=== PATIENT | female | born 1945 | race Caucasian/White ===

== ENCOUNTER → 2016-09-28 | Outpatient (CLI) | payer BC ==
[~2016-09-28] MED LIST: ALL180 PO; CALC-51; FLONASE; MULT-506 PO
--- NOTE | 2016-09-28 15:00 | MAMMOGRAPHY REPORT ---
BILATERAL DIGITAL SCREENING MAMMOGRAM WITH CAD: 09/28/2016 CLINICAL HISTORY: Routine screening. Patient has no complaints. TECHNIQUE: Bilateral CC and MLO views were obtained. Current study was also evaluated with a Comput er Aided Detection (CAD) system. COMPARISON: Comparison is made to exams dated: 09/26/2015 mammogram, 09/21/2013 mammogram, 09/25/2014 mammogram, 08/11/2012 mammogram, 07/28/2011 mammogram, and 08/01/2010 mammogram - [facility]. BREAST COMPOSITION: There are scattered areas of fibroglandular density in both breasts. FINDINGS: The parenchymal pattern is similar to prior exams. There are benign appearing calcificati ons anteriorly in the left breast. No suspicious mass, architectural distortion or cluster of micro calcifications is seen. IMPRESSION: ACR BI-RADS CATEGORY 1: NEGATIVE There is no mammographic evidence of malignancy. A 1 year screening mammogram is recommended. The p atient will receive written notification of the results. Approximately 10% of breast cancers are not detected with mammography. A negative mammographic repor t should not delay biopsy if a clinically suggestive mass is present. Charo Crow M.D. ay/:09/28/2016 13:47:18 Rehab Manager: Huong VENTURA(Natalia)(Cristal), [facility] letter sent: Normal 1/2 BI-RADS Code: ACR BI-RADS Category 1: Negative
== END | disposition home or self-care (01) ==
LOC: C.MAMM 08:40
PROVIDERS: ATTEND Nurse Practitioner
DX: Z12.31 Encounter for screening mammogram for malignant neoplasm of breast (principal)

== ENCOUNTER → 2017-07-23 | Day surgery (SDC) | payer BC ==
[2017-07-14 07:54] VITALS: BMI 22.0
[~2017-07-23] VITALS: Ht 160 cm; Wt 57.7 kg
[~2017-07-23] MED LIST changes: -ALL180 PO; +ASPCH81X PO; +ATROPINE SULFATE 0.1 MG/ML 5ML SYR IV PRN; -CALC-51; +CHOL200010 PO; +EpHEDrine SULFATE INJ 50 MG/ML AMP IV PRN; +FEXO1TAB49 PO; +FLAX1CAP11 PO; -FLONASE; +OMEG10007 PO; +OYST500T47 PO
[2017-07-23 10:30] VITALS: Ht 160 cm; Wt 57.7 kg
--- NOTE | 2017-07-23 10:58 | Endo History and Physical ---
History & Physical Date of Service: Jul 23, 2017. Chief Complaint: HX OF POLYPS Referring Physician: ALBERT CHRIS History of Present Illness 72 yo CF who presents for colonoscopy secondary to history of colon polyps. Past Surgical History Hx Cardiac Surgery: No Hx Internal Defibrillator: No Hx Pacemaker: No Hx Abdominal Surgery: Yes (TUBAL LIGATION) Hx of Implantable Prosthesis: No Hx Post-Op Nausea and Vomiting: Yes Hx Cancer Surgery: No Hx Thoracic Surgery: No Hx Orthopedic: Yes (RT RCR, LUMBAR FUSION) Hx Urinary Tract Surgery: No Family History Colon CA, Polyp, IBD Social History Smoking Status: Never Smoker Hx Substance Use: No Hx Alcohol Use: Yes (VERY RARELY) Allergies Coded Allergies: Latex1 -Allergic Contact Dermititis (Verified Allergy, Intermediate, LIP SWELL, 07/23/17) ONLY OCCURS WHEN AT DENTIST AND LATEX TOUCH LIPS NO KNOWN DRUG ALLERGIES (Verified Allergy, Unknown, ., 07/23/17) Current Medications Reported Home Medications Medications Dose Route/Sig Max Daily Dose Days Date Category Multivitamin (Multivitamins) Tab 1 Tab PO QAM 07/14/17 Reported Aspirin Chewable (Aspirin) 81 Mg Chew 81 Mg PO QAM 07/14/17 Reported Calcium (Oyster Shell) 500 Mg Tab 1 Tab PO QAM 07/14/17 Reported Vitamin D (Cholecalciferol) 2,000 Unit Cap 2 Cap PO BID 07/14/17 Reported Flax Seed Oil (Flaxseed (Linseed)) 1 Cap Cap 1 Cap PO BID 07/14/17 Reported [place]-3 (Fish Oil) 1 Ea Cap 1 Cap PO BID 07/14/17 Reported Desi Allergy (Fexofenadine Hcl) 180 Mg Tab 1 Tab PO QAM 07/14/17 Reported Vital Signs Weight (Kilograms): 57.73 Height (Feet): 5 Height (Inches): 3 Date Time Temp Pulse Resp B/P (MAP) Pulse Ox O2 Delivery O2 Flow Rate FiO2 07/23/17 10:37 36.7 72 16 142/68 (92) 99 Room Air Physical Exam General Appearance: WD/WN, no apparent distress Respiratory/Chest: Auscultation: breath sounds normal Cardiovascular: Heart Auscultation: RRR Abdomen: Bowel Sounds: normal Inspection & Palpation: soft, non-distended, no tenderness, guarding & rebound Assessment and Plan Assessment: 72 yo CF who presents for colonoscopy secondary to history of colon polyps. Plan: Proceed with colonoscopy.
--- NOTE | 2017-07-23 11:40 | Discharge Instructions ---
Endoscopy Patient Instructions Date / Procedure(s) Performed Jul 23, 2017. Colonoscopy Allergy Information Coded Allergies: Latex1 -Allergic Contact Dermititis (Verified Allergy, Intermediate, LIP SWELL, 07/23/17) ONLY OCCURS WHEN AT DENTIST AND LATEX TOUCH LIPS NO KNOWN DRUG ALLERGIES (Verified Allergy, Unknown, ., 07/23/17) Discharge Date / Findings Jul 23, 2017. Diverticulosis Internal hemorrhoids Medication Instructions OK to resume all medications today as prescribed Reported Home Medications Medications Dose Route/Sig Max Daily Dose Days Date Category Multivitamin (Multivitamins) Tab 1 Tab PO QAM 07/14/17 Reported Aspirin Chewable (Aspirin) 81 Mg Chew 81 Mg PO QAM 07/14/17 Reported Calcium (Oyster Shell) 500 Mg Tab 1 Tab PO QAM 07/14/17 Reported Vitamin D (Cholecalciferol) 2,000 Unit Cap 2 Cap PO BID 07/14/17 Reported Flax Seed Oil (Flaxseed (Linseed)) 1 Cap Cap 1 Cap PO BID 07/14/17 Reported [place]-3 (Fish Oil) 1 Ea Cap 1 Cap PO BID 07/14/17 Reported Desi Allergy (Fexofenadine Hcl) 180 Mg Tab 1 Tab PO QAM 07/14/17 Reported Provider Instructions Activity Restrictions - No exercising or heavy lifting for 24 hours. - Do not drink alcohol the day of the procedure. - Do not drive a car or operate machinery until the day after the procedure. - Do not make any important decisions or sign important papers in 24 hours after the procedure. Following Day: - Return to full activity which may include returning to work/school. Diet Start your diet with liquids and light foods (jello, soup, juice, toast). Then eat your usual diet if not nauseated. Treatment For Common After Affects For mild abdominal pain, bloating, or excessive gas: - Rest - Eat lightly - Lie on right side Follow-Up Information Follow-up with ALBERT CHRIS as scheduled Anesthesia Information What You Should Know You have had a procedure that required some medicine to reduce anxiety and discomfort. This treatment is called moderate sedation. After receiving the treatment, you may be sleepy, but you will be able to breathe on your own. The effects of the treatment may last for several hours. Follow these instructions along with Activity/Diet recommendations noted above: * Do NOT do anything where dizziness or clumsiness would be dangerous. * Rest quietly at home today, then you can be up and about tomorrow. * Have a responsible person stay with you the rest of today. * You may have had an I.V. today. If so, you may take the dressing off later today. Recommendations Call your doctor if: * Trouble breathing * Continuous vomiting for more than 24 hours * Temperature above 101 degrees * Severe abdominal pain or bloating * Pain not relieved by pain medicine ordered * There is increased drainage or redness from any incision * A large amount of rectal bleeding greater than 2-3 tablespoons. (If you had a polyp/s removed or have hemorrhoids, a small amount of blood - from the rectum is to be expected.) * You have any unanswered questions or concerns. IN THE EVENT OF A SERIOUS EMERGENCY, GO TO THE NEAREST EMERGENCY ROOM Your discharge instructions were prepared by provider Matt Qureshi. Patient Instructions Signature Page Kaylin Marvin Patient (or Guardian) Signature/Date: I have read and understand the instructions given to me by my caregivers. Caregiver/RN/Doctor Signature/Date: The above-named patient and/or guardian has received patient instructions on this date. + Original Patient Signature Page (only) stays with chart. Please make copy for patient.
[2017-07-23 11:55] VITALS: BP 137/90; PULSE 63; O2SAT 100
--- NOTE | 2017-07-23 11:56 | Anesthesiology Progress Note ---
Anesthesia Post Op Note Date & Time Jul 23, 2017 at 11:56 Vital Signs Pain Intensity: 0 Vital Signs Past 12 Hours Date Time Temp Pulse Resp B/P (MAP) Pulse Ox O2 Delivery O2 Flow Rate FiO2 07/23/17 11:40 73 16 128/67 (87) 100 Room Air 07/23/17 11:40 73 16 128/67 (87) 100 Room Air 07/23/17 10:37 36.7 72 16 142/68 (92) 99 Room Air Notes Mental Status: alert / awake / arousable, participated in evaluation Pt Amnestic to Procedure: Yes Nausea / Vomiting: adequately controlled Pain: adequately controlled Airway Patency, RR, SpO2: stable & adequate BP & HR: stable & adequate Hydration State: stable & adequate Anesthetic Complications: no major complications apparent
--- NOTE | 2017-07-23 14:00 | GI REPORT ---
Procedure Date: 07/23/2017 10:54 AM Procedure: Colonoscopy Indications: High risk colon cancer surveillance: Personal history of colonic polyps Medicines: Monitored Anesthesia Care Complications: No immediate complications. Estimated Blood Loss: Estimated blood loss: none. Procedure: Pre-Anesthesia Assessment: - Prior to the procedure, a History and Physical was performed, and patient medications and allergies were reviewed. The patient's tolerance of previous anesthesia was also reviewed. The risks and benefits of the procedure and the sedation options and risks were discussed with the patient. All questions were answered, and informed consent was obtained. Prior Anticoagulants: The patient has taken aspirin, last dose was 2 days prior to procedure. ASA Grade Assessment: II - A patient with mild systemic disease. After reviewing the risks and benefits, the patient was deemed in satisfactory condition to undergo the procedure. After I obtained informed consent, the scope was passed under direct vision. Throughout the procedure, the patient's blood pressure, pulse, and oxygen saturations were monitored continuously. The On-site loaner was introduced through the anus and advanced to the terminal ileum. The colonoscopy was performed without difficulty. The patient tolerated the procedure well. The quality of the bowel preparation was good. The terminal ileum, ileocecal valve, appendiceal orifice, and rectum were photographed. Findings: The perianal and digital rectal examinations were normal. Multiple small-mouthed diverticula were found in the sigmoid colon. Non-bleeding internal hemorrhoids were found during retroflexion. The hemorrhoids were small. Impression: - Diverticulosis in the sigmoid colon. - Non-bleeding internal hemorrhoids. - No specimens collected. Recommendation: - Resume previous diet. - Continue present medications. - Repeat colonoscopy in 5 years for surveillance. - Return to primary care physician as previously scheduled. Matt Qureshi DO 07/23/2017 11:38:53 AM This report has been signed electronically. Note Initiated On: 07/23/2017 10:54 AM I attest to the content of the Intraoperative Record and orders documented therein, exceptions below
== END | disposition home or self-care (01) ==
LOC: C.GI 10:06
PROVIDERS: ATTEND Internal Medicine
DX: Z12.11 Encounter for screening for malignant neoplasm of colon (principal); K57.30 Diverticulosis of large intestine without perforation or abscess without bleeding; K64.8 Other hemorrhoids; Z86.010 Personal history of colon polyps; Z98.51 Tubal ligation status; Z98.890 Other specified postprocedural states; Z80.0 Family history of malignant neoplasm of digestive organs; Z01.419 Encounter for gynecological examination (general) (routine) without abnormal findings; Z91.040 Latex allergy status; Z79.82 Long term (current) use of aspirin

== ENCOUNTER → 2017-09-29 | Outpatient (CLI) | payer BC ==
[~2017-09-29] MED LIST changes: -ATROPINE SULFATE 0.1 MG/ML 5ML SYR IV PRN; -EpHEDrine SULFATE INJ 50 MG/ML AMP IV PRN
--- NOTE | 2017-09-29 15:40 | MAMMOGRAPHY REPORT ---
BILATERAL DIGITAL SCREENING MAMMOGRAM TOMOSYNTHESIS WITH CAD: 09/29/2017 CLINICAL HISTORY: Routine screening. TECHNIQUE: Breast tomosynthesis in addition to standard 2D mammography was performed. Current study was also evaluated with a Computer Aided Detection (CAD) system. COMPARISON: Comparison is made to exams dated: 09/28/2016 mammogram, 09/26/2015 mammogram, 09/25/2014 m ammogram, 09/21/2013 mammogram, 08/11/2012 mammogram, and 07/28/2011 mammogram - [facility]. BREAST COMPOSITION: There are scattered areas of fibroglandular density in both breasts. FINDINGS: No suspicious masses, calcifications, or areas of architectural distortion are noted in ei ther breast. There has been no significant interval change compared to prior exams. IMPRESSION: ACR BI-RADS CATEGORY 1: NEGATIVE There is no mammographic evidence of malignancy. A 1 year screening mammogram is recommended. The pa tient will receive written notification of the results. Approximately 10% of breast cancers are not detected with mammography. A negative mammographic report should not delay biopsy if a clinically suggestive mass is present. Anjali Hyman M.D. /:09/29/2017 09:43:56 Roll Coating Machine Operator: Nav VENTURA(R)(M), [facility] letter sent: Normal 1/2 BI-RADS Code: ACR BI-RADS Category 1: Negative
== END | disposition home or self-care (01) ==
LOC: C.MAMM 09:20
PROVIDERS: ATTEND Nurse Practitioner
DX: Z12.31 Encounter for screening mammogram for malignant neoplasm of breast (principal)

== ENCOUNTER 2019-05-24 06:00 | Inpatient (IN) ==
--- NOTE | 2019-05-02 16:07 | PAT Medication Instructions ---
Medication Instructions Date of Service May 02, 2019 Home Medications aspirin [Aspir-81] 81 mg PO QPM calcium carbonate [Calcium 600] 600 mg PO QAM cholecalciferol (vitamin D3) [Vitamin D3] 2,000 unit PO QAM fexofenadine [Desi Allergy] 180 mg PO QAM flaxseed oil 1,500 mg PO BID ibuprofen 600 mg PO Q6H PRN multivitamin 1 tab PO QAM omega 2-htu-qfz-fish oil [Fish Oil] 1 cap PO BID ASK your surgeon for instructions ibuprofen 600 mg PO Q6H PRN ASK your prescriber and surgeon aspirin [Aspir-81] 81 mg PO QPM STOP taking 2 weeks before surgery (or as soon as possible if surgery is within 2 weeks) flaxseed oil 1,500 mg PO BID omega 2-wth-rda-fish oil [Fish Oil] 1 cap PO BID DO NOT take the morning of surgery calcium carbonate [Calcium 600] 600 mg PO QAM cholecalciferol (vitamin D3) [Vitamin D3] 2,000 unit PO QAM fexofenadine [Desi Allergy] 180 mg PO QAM multivitamin 1 tab PO QAM Other Notes If you have any questions please call us at [phone] or [phone] or [phone] or [phone]
--- NOTE | 2019-05-03 10:02 | Anesthesiology Consultation ---
Date of Service May 03, 2019 Assessment & Plan (1) Encounter for pre-operative examination: Possible difficult intubation due to anatomy. Chart Review Chart Review: Acceptable Risk for Surgery (pending review of preop testing (labs, EKG, CXR)) and Patient seen in Pre Admission Testing Teaching & Discussion Pre-Anesthesia Teaching/Discussion Notes: Instructed NPO after midnight before surgery,except medications with 15 cc of water. Medication instructions provided according to the PAT guidelines. History Surgery Operation Date: 05/24/19 07:45 Proposed Procedures p L2-L5 Decompression and Fusion, Spinal Cord Monitoring - Douglas Almanza DO Height/Weight Height: 5 ft 3 in Weight: 59.8 kg Allergies Allergy/AdvReac Type Severity Reaction Status Date / Time latex Allergy Intermediate LIP Verified 04/25/19 09:44 SWELLING-DENTAL WORK Medications Home Medications Medication Instructions Recorded Confirmed Last Taken aspirin [Aspir-81] 81 mg PO QPM 04/25/19 04/25/19 Unknown calcium carbonate [Calcium 600] 600 mg PO QAM 04/25/19 04/25/19 Unknown cholecalciferol (vitamin D3) 2,000 unit PO QAM 04/25/19 04/25/19 Unknown [Vitamin D3] fexofenadine [Desi Allergy] 180 mg PO QAM 04/25/19 04/25/19 Unknown flaxseed oil 1,500 mg PO BID 04/25/19 04/25/19 Unknown ibuprofen 600 mg PO Q6H PRN 04/25/19 04/25/19 Unknown multivitamin 1 tab PO QAM 04/25/19 04/25/19 Unknown omega 1-iyj-yjd-fish oil [Fish Oil] 1 cap PO BID 04/25/19 04/25/19 Unknown Past Medical History Medical History Arthritis Migraine HX Stomach ulcer HX Exercise / Class Metabolic Activity II 4-5 Yardwork/Stairs/Walk up hill Past Family History Family History Mother Family hx of colon cancer Past Surgical History Surgical History Fusion of spine LUMBAR History of bilateral tubal ligation History of colonoscopy History of esophagogastroduodenoscopy (EGD) History of repair of rotator cuff RIGHT Past Anesthesia History No Hx of Anesthesia Complications (except PONV) and No Family Hx of Anesthesia Complications History of PONV History of PONV and Hx of Motion Sickness Social History Smoking Status: Never smoker Do You Dip or Chew Tobacco: No Hx Alcohol Use: Yes Alcohol type: beer alcohol intake frequency: holidays/special occasions only Hx Substance Use: No Review of Systems Patient denies chest pain, shortness of breath, dyspnea on exertion, reflux, cough, wheezing, palpitations. Physical Exam Vital Signs VITALS BP 132/71 P 65 TEMP 97.8 SP02 100%RA RESP 20 PHYSICAL Full neck and c-spine range of motion. Full TMJ range of motion. TMD 2 finger breaths (small chin) Mallampati Score 2 Dentition: missing molars, several crowns, upper front veneers Lungs: clear throughout to auscultation Cardiac: regular rate and rhythm, no murmurs noted Spine: normal Carotid arteries: negative bruit Extremities: no edema
--- NOTE | 2019-05-03 10:39 | XRay Report ---
XR chest Pre-admission PA/Lat CLINICAL HISTORY: 74 years-old Female presenting with preoperative evaluation. TECHNIQUE: PA and lateral views of the chest were obtained. COMPARISON: 02/15/2007. FINDINGS: Atherosclerosis of the aortic arch. Cardiac silhouette normal in size. Lungs are hyperinflated. No fo sarah opacity. No pleural effusion or pneumothorax. Degenerative changes of the thoracic spine. Upper a bdomen normal. IMPRESSION: 1. Findings suggest emphysema. No focal infiltrate to suggest pneumonia. Electronically signed by: Antonio Wyatt M.D. 05/03/2019 10:38 AM
[2019-05-03 10:49] LABS: Appearance Urine Clear (Clear); Basophils # (auto) 0.01 K/uL (0-0.2); Basophils % (auto) 0.2 %; Bilirubin Urine Negative (Negative); Blood Urine Negative (Negative); Color Urine Yellow; Eosinophils # (auto) 0.12 K/uL (0-0.5); Eosinophils % (auto) 1.9 %; Glucose Urine UA Negative (Negative); Hematocrit (blood only) 42.6 % (37-47); Hemoglobin 14.8 g/dL (12.0-16.0); Immature Granulocytes # (auto) 0.02 K/uL (0.00-0.02); Immature Granulocytes % (auto) 0.3 %; Ketones Urine Negative (Negative); Leukocyte Esterase Urine Negative (Negative); Lymphocytes # (auto) 1.79 K/uL (1.2-3.4); Lymphocytes % (auto) 28.3 %; Mean Corpuscular Hgb Conc 34.7 g/dL (32-36); Monocytes # (auto) 0.45 K/uL (0.11-0.59); Monocytes % (auto) 7.1 %; Neutrophils # (auto) 3.94 K/uL (1.4-6.5); Neutrophils % (auto) 62.2 %; Nitrite Urine Negative (Negative); Platelet Count 253 K/uL (130-400); Protein Urine Negative (Negative); RDW Coefficient of Variation 13.4 % (11.5-14.5); RDW Standard Deviation 44.8 fL (36.4-46.3); Red Blood Count 4.63 M/uL (4.2-5.4); Specific Gravity Urine 1.015 (1.000-1.030); Urobilinogen Urine Negative (Negative); White Blood Count 6.33 K/uL (4.8-10.8)
[2019-05-03 10:56] LABS: Calcium 9.9 mg/dl (8.5-10.1); Creatinine Clr Calc Pharmacy 44.1 ml/min; Est GFR (African American) 69.8; Est GFR (Non-African American) 60.2; Potassium 4.3 mmol/L (3.5-5.1)
[2019-05-03 11:01] LABS: Partial Thromboplastin Ratio 0.9; Partial Thromboplastin Time 25.6 Seconds (21.0-31.0); Prothrombin Time 10.1 Seconds (9.0-12.0)
[~2019-05-24 06:00] MED LIST changes: +ACETAMINOPHEN 500 MG TAB PO SCH; -ASPCH81X PO; +CEFAZOLIN 1000MG 1,000 MG/7.5 ML SYR IV SCH; -CHOL200010 PO; +CeleBREX 200 MG CAP PO SCH; -FEXO1TAB49 PO; -FLAX1CAP11 PO; +GABAPENTIN 300 MG CAP PO SCH; +LR 15ML/HR IV SCH; -MULT-506 PO; -OMEG10007 PO; -OYST500T47 PO
[2019-05-24] MEDS ORDERED: MIDAZOLAM HCL 1 MG/ML 2ML VIAL ONE (06:49)
[2019-05-24] MEDS ORDERED: HYDROmorphone INJ 2 MG/ML SYR/VIAL ONE (06:50)
[2019-05-24] MEDS ORDERED: fentaNYL citrate 100 MCG/2 ML VIAL ONE ×4 (06:50→10:03)
[2019-05-24] MEDS ORDERED: LIDOCAINE HCL 2% 2 ML VIAL/AMP(20MG/ML) INFIL ONE (06:51)
[2019-05-24] MEDS ORDERED: GLYCOPYRROLATE 0.2 MG/ML VIAL ONE (06:51)
[2019-05-24] MEDS ORDERED: NEOSTIGMINE METHYLSULFATE 1 MG/ML 10ML VIAL ONE (06:51)
[2019-05-24] MEDS ORDERED: PROPOFOL IV EMULSION 10 MG/ML 20 ML VIAL IV ONE (06:51)
[2019-05-24] MEDS ORDERED: DEXAMETHASONE SOD INJ 4 MG/ML VIAL ONE (06:51)
[2019-05-24] MEDS ORDERED: ONDANSETRON INJ 2 MG/ML 2 ML VIAL ONE (06:51)
[2019-05-24] MEDS ORDERED: ROCURONIUM BROMIDE 10 MG/ML 5 ML VIAL ONE (06:51)
[2019-05-24] MEDS ORDERED: BUPIVACAINE/EPINEPHRINE 0.5% MPF 1:200,000 30 ML VIAL ONE (07:05)
[2019-05-24] MEDS ORDERED: BACITRACIN INJ 50,000 UNIT VIAL ONE (07:06)
--- NOTE | 2019-05-24 07:22 | History & Physical Bridge Note ---
Date of Service May 24, 2019 History & Physical Bridge Note I have examined the patient, reviewed the History & Physical and in the interval since the performance of the History & Physical I have noted the following changes of clinical significance: no changes noted
--- NOTE | 2019-05-24 07:23 | History & Physical Report ---
Date of Service May 24, 2019 Assessment & Plan (1) Neurogenic claudication due to lumbar spinal stenosis: L2-L5 decompression and fusion Present on Admission?: Yes History of Present Illness Chief Complaint: Back and bilateral leg pain Primary Care Provider: ARIES Neri This is a 74-year-old female who presents with chronic persistent back and bilateral leg pain. After failing extensive course of nonoperative care is here for surgical intervention. Allergies Allergy/AdvReac Type Severity Reaction Status Date / Time latex Allergy Intermediate LIP Verified 05/24/19 06:21 SWELLING-DENTAL WORK No Known Drug Allergies Allergy Unknown Uncoded 05/24/19 06:21 Home Medications Home Medications Medication Instructions Recorded Confirmed Type aspirin [Aspir-81] 81 mg PO QPM 04/25/19 05/24/19 History calcium carbonate [Calcium 600] 600 mg PO QAM 04/25/19 05/24/19 History fexofenadine [Desi Allergy] 180 mg PO QAM 04/25/19 05/24/19 History flaxseed oil 1,500 mg PO BID 04/25/19 05/04/19 History ibuprofen 600 mg PO Q6H PRN 04/25/19 05/24/19 History omega 3-dxa-edk-fish oil [Fish Oil] 1 cap PO BID 04/25/19 05/04/19 History Past Med/Surg History Medical History Arthritis Migraine HX Stomach ulcer HX Surgical History Fusion of spine LUMBAR History of bilateral tubal ligation History of colonoscopy History of esophagogastroduodenoscopy (EGD) History of repair of rotator cuff RIGHT Family History Mother Family hx of colon cancer Social History Preferred Language: Nepali Communication Ability: Effective Construction Equipment Technician Required: No Beliefs That Will Affect Care: None Current Living Situation: Spouse Other Information That Helps Us Care for You: No Feels Safe at Home: Yes Safety Concerns: Feels Safe At This Time Smoking Status: Never smoker Do You Dip or Chew Tobacco: No ; Second Hand Exposure: No ; Hx Alcohol Use: Yes Alcohol type: beer Hx Substance Use: No Physical Exam Physical Exam: Patient is alert and oriented neurologically intact. Results & Data Vital Signs (Past 12 Hours) Vital Signs Temp Pulse Resp BP Pulse Ox 05/24/19 06:27 36.9 C 79 16 158/72 H 99
[2019-05-24] MEDS ORDERED: ATROPINE SULFATE 0.1 MG/ML 10ML SYR IV PRN (07:30)
[2019-05-24] MEDS ORDERED: HYDROmorphone INJ 1 MG/ML SYRINGE IV PRN (07:30)
[2019-05-24] MEDS ORDERED: ePHEDrine sulfate 50 MG/ML AMP IV PRN (07:30)
[2019-05-24] MEDS ORDERED: FLOSEAL HEMOSTATIC MATRIX 10ML TOP ONE (08:29)
[2019-05-24] MEDS ORDERED: ePHEDrine sulfate 50 MG/ML SYR ONE (09:31)
[2019-05-24] MEDS ORDERED: PHENYLEPHRINE 100MCG/ML 5ML SYR ONE (09:31)
[2019-05-24] MEDS ORDERED: ePHEDrine sulfate 50 MG/ML AMP ONE (09:31)
[2019-05-24] MEDS ORDERED: KETOROLAC 30 MG/ML VIAL ONE ×2 (09:31→11:56)
[2019-05-24] MEDS ORDERED: raNITIdine HCl 25 MG/ML VIAL IV ONE (09:31)
--- NOTE | 2019-05-24 10:01 | Operative Report ---
Post Operative Report Pre & Post Diagnosis Operation Date: 05/24/19 07:45 Pre-Op Diagnosis: Spinal stenosis with neurogenic claudication. Herniated nucleus pulposus L2-3 with foraminal disc herniation Post-Op Diagnosis: Same Procedure Operation Date: 05/24/19 07:45 Actual Procedures #1 removal of posterior instrumentation L5-S1. #2 expiration of fusion L5-S1. #3 lumbar decompression with bilateral medial facetectomies and foraminotomies L2-3 L3-4 L4-5. #4 posterior spinal fusion L2-3 L3-4 L4-5. #5 placement posterior segmental instrumentation L2-S1. #6 interbody fusion L2-3. #7 placement of peek cage 9 x 26 mm of L2-3. #8 basement of local autograft in the posterior lateral gutters per #9 placement infuse collagen sponge combined master graft in the posterior lateral gutters and ostial amp in the interbody space. Surgeon Douglas Almanza, Retail General Manager Sana Braxton Estimated Blood Loss 225 Findings Consistent with Post-Op Diagnosis Specimens None Indications This is a 74-year-old female well-known to the presents with above-mentioned diagnosis after failing extensive course of nonoperative care elected to go the above-mentioned procedure. Description of Procedure Patient was met with identified and informed consent obtained. Patient was then taken to the operative suite underwent intubation placed in the prone position the Malvin table on top of the Julian frame. All bony prominences well-padded eyes inspected to ensure no external pressure placed upon the peer at this point the lumbar spine was prepped and draped in the normal sterile fashion. Sharp dissection with the assistance of Bovie cautery was performed down to and exposing the lamina and transverse processes of L2-L3-L4 and instrumentation at L5 and S1 levels bilaterally. Then proceed remove the hardware bilaterally at L5 and S1. Explore the fusion mass noting it to be intact. Then performed a complete laminectomy with bilateral medial facetectomies and foraminotomies from a caudal cephalad fashion of L for L3 and L2. Pedicle fusion and placed in L2 L3-L4-L5 and S1 levels bilaterally with assistance of fluoroscopy the purposes mini provisionally placed by way of a trans-foraminal approach on the right complete discectomy of L2-3 was performed including removal of all disc herniation occupying the foramen. The endplates were then burred to subcortical bleeding bone and a 9 x 26 mm peek cage filled with osteo-amp bone graft tapped in position. The rods were then locked in final position bilaterally. The transverse processes of L2-L3-L4 L5 were then burred to subcortical bleeding bone. Infuse collagen sponge master graft and local autograft placed in the posterior lateral gutters. 15 round KASH drain inserted. The incision was then closed with 1 Vicryl in the fascia 2-0 Vicryl subcutaneous and 4-0 Monocryl for final skin closure. Steri-Strip sterile dressing was placed. Patient will continue PACU stable disc. Please note Sana Braxton present throughout the entire procedure involved in patient positioning complex portions of the surgery and final skin closure. Lastly spinal cord monitoring was utilized throughout the procedure no changes noted. I attest to the content of the Intraoperative Record and any orders documented therein. Any exceptions are noted below.
[2019-05-24] MEDS ORDERED: ESMOLOL HCL INJ 10 MG/ML 10ML VIAL IV ONE (10:02)
--- NOTE | 2019-05-24 10:17 | Fluoroscopy Report ---
FL lumbar spine 2-3V CLINICAL HISTORY: L2-L5 DECOMPRESSION AND FUSION COMPARISON STUDY: None FLUOROSCOPY TIME: 22 seconds. NUMBER OF FLUOROSCOPIC IMAGES: 3 FINDINGS: 3 intraoperative fluoroscopic spot images demonstrate postsurgical changes of L2-3, and L5- S1 discectomies and interbody fusions. There is posterior spinal fusion at the L2-S1 levels with post erior pedicle screw fixation. Laminectomy defects are visualized IMPRESSION: Intraoperative radiographs demonstrating evidence of L2-L5 spinal decompression and fusi on. Electronically signed by: Danyel Miramontes M.D. 05/24/2019 10:16 AM
--- NOTE | 2019-05-24 11:00 | Anesthesiology Progress Note ---
Date of Service May 24, 2019 Anesthesia Post Procedure Vital Signs Vital Signs: Temp Pulse Pulse Resp BP BP Pulse Ox 05/24/19 10:55 72 18 151/67 H 100 05/24/19 10:45 98 H 18 138/66 98 05/24/19 10:35 93 H 18 155/75 H 100 05/24/19 10:25 80 24 148/70 H 100 05/24/19 10:19 36 C L 80 12 133/64 100 05/24/19 06:27 36.9 C 79 16 158/72 H 99 Transfer of Care Handoff Completed per policy Notes Mental Status: alert / awake / arousable Patient Amnestic to Procedure: Yes Nausea / Vomiting: adequately controlled Pain: adequately controlled Airway Patency, RR, SpO2: stable & adequate BP & HR: stable & adequate Hydration State: stable & adequate Anesthetic Complications: no major complications apparent and Pt Satisfied with anesthetic care
[2019-05-24] MEDS ORDERED: OXYCODONE HCL IR 5 MG TAB (IMMEDIATE RELEASE) PO PRN (11:51)
[2019-05-24] MEDS ORDERED: ALUMINUM/MAGNESIUM SUSP 30 ML UDC PO PRN (11:51)
[2019-05-24] MEDS ORDERED: METOCLOPRAMIDE HCL INJ 5 MG/ML 2 ML VIAL IV PRN (11:51)
[2019-05-24] MEDS ORDERED: LORazepam 0.5 MG/1 ML VIAL IV PRN (11:51)
[2019-05-24] MEDS ORDERED: FAMOTIDINE 20 MG TAB PO PRN (11:51)
[2019-05-24] MEDS ORDERED: HYDROmorphone INJ 0.5 MG/0.5 ML SYR IV PRN (11:51)
[2019-05-24] MEDS ORDERED: SOD PHOSPHATE/SOD BIPHOSPHATE ENEMA 132 ML BTL PR PRN (11:51)
[2019-05-24] MEDS ORDERED: MAGNESIUM HYDROXIDE SUSP 30 ML UDC PO PRN (11:51)
[2019-05-24] MEDS ORDERED: PROMETHAZINE HCL 12.5 MG in SODIUM CHLORIDE 0.9% 50 ML IV PRN (11:51)
[2019-05-24] MEDS ORDERED: NALOXONE HCL 0.4 MG/1 ML VIAL/CARP IV PRN (11:51)
[2019-05-24] MEDS ORDERED: DO NOT ADMINISTER PNEUMOCOCCAL VACCINE PRN (11:51)
[2019-05-24] MEDS ORDERED: LORazepam 0.5 MG TAB PO PRN (11:51)
[2019-05-24] MEDS ORDERED: BISACODYL 10 MG SUPP PR PRN (11:51)
[2019-05-24] MEDS ORDERED: ONDANSETRON INJ 2 MG/ML 2 ML VIAL IV PRN (11:51)
[2019-05-24] MEDS ORDERED: DO NOT ADMINISTER FLU VACCINE PRN (11:51)
[2019-05-24] MEDS ORDERED: LARYING-O-JET KIT (LTA) ONE (11:56)
[2019-05-24] MEDS: CEFAZOLIN 1000MG 1,000 MG/7.5 ML SYR IV SCH ×2 (17:01→23:38)
[2019-05-24] MEDS: ACETAMINOPHEN 1,000 MG/100 ML VIAL IV PRN (18:26)
[2019-05-24] MEDS: DOCUSATE SODIUM/SENNA 50/8.6MG TAB PO SCH (19:49)
[2019-05-24] MEDS: LACTATED RINGER'S 1,000 ML IV SCH ×2 (19:49→19:52)
[2019-05-24] MEDS: ASPIRIN 81 MG ECTAB PO SCH (19:49)
[2019-05-25] MEDS: POLYETHYLENE (MIRALAX) 17 GM PACK PO SCH ×4 (06:19→23:17)
[2019-05-25 06:20] LABS: Basophils # (auto) 0.01 K/uL (0-0.2); Basophils % (auto) 0.1 %; Eosinophils # (auto) 0.01 K/uL (0-0.5); Eosinophils % (auto) 0.1 %; Hematocrit (blood only) 30.6 % (37-47); Hemoglobin 10.4 g/dL (12.0-16.0); Immature Granulocytes # (auto) 0.03 K/uL (0.00-0.02); Immature Granulocytes % (auto) 0.3 %; Lymphocytes # (auto) 1.17 K/uL (1.2-3.4); Lymphocytes % (auto) 10.5 %; Mean Corpuscular Hemoglobin 31.5 pg (25-34); Mean Corpuscular Volume 92.7 fL (80-100); Mean Platelet Volume 10.7 fL (7.4-10.4); Monocytes # (auto) 1.04 K/uL (0.11-0.59); Monocytes % (auto) 9.4 %; Neutrophils # (auto) 8.86 K/uL (1.4-6.5); Neutrophils % (auto) 79.6 %; Platelet Count 206 K/uL (130-400); RDW Coefficient of Variation 13.6 % (11.5-14.5); RDW Standard Deviation 46.4 fL (36.4-46.3); White Blood Count 11.12 K/uL (4.8-10.8)
[2019-05-25 06:57] LABS: BUN Creatinine Ratio 15.1 (10-20); Calcium 8.5 mg/dl (8.5-10.1); Creatinine Clr Calc Pharmacy 53.8 ml/min; Est GFR (African American) 88.8; Est GFR (Non-African American) 76.6; Potassium 4.3 mmol/L (3.5-5.1)
[2019-05-25] MEDS: ACETAMINOPHEN 1,000 MG/100 ML VIAL IV PRN (07:24)
[2019-05-25] MEDS: ONDANSETRON 4 MG TAB PO PRN (08:51)
[2019-05-25] MEDS: FEXOFENADINE HCL 180 MG TAB PO SCH (08:52)
[2019-05-25] MEDS: TRAMADOL HCL 50 MG TABLET PO PRN ×2 (08:52→14:50)
[2019-05-25] MEDS: CALCIUM CARBONATE 500 MG CHEWABLE TAB PO SCH (08:52)
--- NOTE | 2019-05-25 09:17 | Orthopedic Progress Note ---
Date of Service May 25, 2019 Assessment & Plan (1) Neurogenic claudication due to lumbar spinal stenosis: This time initiate physical therapy monitor her KASH output and hopefully discharge home this weekend. Present on Admission?: Yes Subjective Back pain controlled leg symptoms improved. Physical Exam Physical Exam: Patient is in the chair at the bedside. Is good strength testing. Appears comfortable. Results & Data Vital Signs (Past 12 Hours) Vital Signs Temp Pulse Resp BP Pulse Ox 05/25/19 06:48 36.7 C 71 18 122/61 99 05/25/19 06:17 99 05/25/19 03:08 36.7 C 78 16 113/62 100 05/24/19 23:37 36.6 C 76 16 99/54 L 100
--- NOTE | 2019-05-25 09:38 | Anesthesiology Progress Note ---
Date of Service May 25, 2019 Anesthesia Post Procedure Vital Signs Vital Signs: Temp Pulse Pulse Resp BP Pulse Ox 05/25/19 06:48 36.7 C 71 18 122/61 99 05/25/19 06:17 99 05/25/19 03:08 36.7 C 78 16 113/62 100 05/24/19 23:37 36.6 C 76 16 99/54 L 100 05/24/19 19:44 36.3 C L 70 16 108/63 100 05/24/19 15:21 36.3 C L 66 16 96/56 L 100 05/24/19 14:48 83 12 107/56 L 100 05/24/19 14:16 36.2 C L 79 18 119/57 L 100 05/24/19 13:21 61 18 101/53 L 100 05/24/19 12:54 63 14 150/70 H 100 05/24/19 12:21 36.2 C L 64 16 133/68 100 05/24/19 11:55 87 18 126/71 100 05/24/19 11:15 61 14 155/65 H 05/24/19 11:05 36.2 C L 69 16 144/62 H 100 05/24/19 10:55 72 18 151/67 H 100 05/24/19 10:45 98 H 18 138/66 98 05/24/19 10:35 93 H 18 155/75 H 100 05/24/19 10:25 80 24 148/70 H 100 05/24/19 10:19 36 C L 80 12 133/64 100 Notes Mental Status: alert / awake / arousable and participated in evaluation Nausea / Vomiting: adequately controlled Pain: adequately controlled Airway Patency, RR, SpO2: stable & adequate BP & HR: stable & adequate Hydration State: stable & adequate
[2019-05-25] MEDS: ACETAMINOPHEN 500 MG TAB PO PRN (17:55)
[2019-05-25] MEDS: DOCUSATE SODIUM/SENNA 50/8.6MG TAB PO SCH (19:52)
[2019-05-25] MEDS: ASPIRIN 81 MG ECTAB PO SCH (19:52)
[2019-05-26] MEDS: POLYETHYLENE (MIRALAX) 17 GM PACK PO SCH ×3 (05:26→17:44)
[2019-05-26] MEDS: FEXOFENADINE HCL 180 MG TAB PO SCH (08:22)
[2019-05-26] MEDS: CALCIUM CARBONATE 500 MG CHEWABLE TAB PO SCH (08:22)
--- NOTE | 2019-05-26 10:49 | Orthopedic Progress Note ---
Date of Service May 26, 2019 Assessment & Plan (1) Neurogenic claudication due to lumbar spinal stenosis: This time we will continue physical therapy monitor KASH output anticipate discharge home tomorrow. Present on Admission?: Yes Physical Exam Physical Exam: Patient's back pain is controlled leg pain markedly improved. Is good strength testing. Results & Data Vital Signs (Past 12 Hours) Vital Signs Temp Pulse Resp BP Pulse Ox 05/26/19 06:58 36.8 C 83 16 123/65 96 05/25/19 23:23 36.7 C 77 16 96/44 L 96
[2019-05-26] MEDS: ONDANSETRON 4 MG TAB PO PRN (14:01)
[2019-05-26] MEDS: ACETAMINOPHEN 500 MG TAB PO PRN (16:17)
[2019-05-26] MEDS: ASPIRIN 81 MG ECTAB PO SCH (20:49)
[2019-05-26] MEDS: DOCUSATE SODIUM/SENNA 50/8.6MG TAB PO SCH (20:49)
--- NOTE | 2019-05-27 07:43 | Discharge Summary ---
Date of Service May 27, 2019 Admission HPI Per Admitting Provider This is a 74-year-old female who presents with chronic persistent back and bilateral leg pain. After failing extensive course of nonoperative care is here for surgical intervention. Discharge Data Consultations 05/24/19 11:51 Consult Case Management - Discharge Planning Routine Procedures Performed Operation Date: 05/24/19 07:45 Actual Procedures p L2-L5 Decompression and Fusion with bone morphogenetic protein, Spinal Cord Mo nitoring, interbody cage L2-3, Osteoamp allograft(Not Applicable) - Douglas Almanza DO s Removal of hardware L5-S1(Not Applicable) - Douglas Almanza DO Hospital Course (1) Neurogenic claudication due to lumbar spinal stenosis: Patient is a 74-year-old female with history physical examination and radiographic images consistent with spinal stenosis. For this reason she is brought to the operating room underwent a removal of instrumentation and lumbar decompression from L2-S1. This was performed by Dr. Almanza under general anesthesia. She tolerated the procedure well was transferred to PACU in stable condition with a KASH drain and Rosas catheter in place. She was placed on GI and DVT prophylaxis as well as pain medication. She was transferred to the orthopedic floor. She has done well with physical therapy. At this point has met discharge criteria and is safe for home discharge. Patient be discharged home without any services. She was given prescriptions for pain medications as well as Zofran for nausea. She is to avoid any bending lifting or twisting. For follow-up. She is to follow-up with her office in 2 weeks or sooner if she developed any increased drainage numbness tingling or leg pain.
[2019-05-27] MEDS: FEXOFENADINE HCL 180 MG TAB PO SCH (08:33)
[2019-05-27] MEDS: CALCIUM CARBONATE 500 MG CHEWABLE TAB PO SCH (08:33)
== END 2019-05-27 10:08 | disposition home or self-care (01) | DRG 455 ==
LOC: ASU 06:00 → 3E 10:03